=== PATIENT | female | born 1980 | race Two or more races ===

== ENCOUNTER 2019-06-05 08:29 | Outpatient (CLI) | payer OTHER ==
[~2019-06-05] VITALS: Ht 30.5 cm; Wt 0.5 kg
[~2019-06-05 08:29] MED LIST: Isovue-M 300 15ml INJ ONE
[2019-06-05] MEDS ORDERED: Isovue-M 300 15ml INJ ONE (08:56)
[2019-06-05 09:00] VITALS: BP 106/64
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
--- NOTE | 2019-06-05 09:17 | Pre-Procedure Note/Attestation ---
Pre-Procedure Note/Attestation Complete Prior to Procedure Planned Procedure: left Procedure Narrative: Left-sided facet injections to the L3-4, L4-5 and L5-S1 joints and a left ischial bursa injection. Indications for Procedure Pre-Operative Diagnosis: lumbosacral spondylosis, ischial bursitis Attestation I attest that I discussed the nature of the procedure; its benefits; risks and complications; and alternatives (and the risks and benefits of such alternatives ), prior to the procedure, with the patient (or the patient's legal sales representative sales manager). I attest that, if there was a reasonable possibility of needing a blood transfusion, the patient (or the patient's legal sales representative sales manager) was given the [place] [facility] standardized written summary, pursuant to the [place] Blood Safety Act ([place] Health and Safety Code # 1645, as amended). I attest that I re-evaluated the patient just prior to the surgery and that there has been no change in the patient's H&P, except as documented below: Lucinda Rowell MD Jun 05, 2019 09:17
[2019-06-05] MEDS ORDERED: Isovue-M 300 15ml INJ PRN (09:30)
[2019-06-05] MEDS ORDERED: Depo-Medrol 80mg Vial IARTIC PRN (09:30)
[2019-06-05 10:30] VITALS: BP 113/72
--- NOTE | 2019-06-05 10:32 | Brief Operative Note ---
Immediate Post Operative Note Operative Note Chief Complaint: lower back pain and left buttock pain Pre-op Diagnosis: lumbosacral spondylosis, ischial bursitis Procedure: Left L3-4, L4-5, L5-S1 facet injections and left ischial bursa injection. Post-op Diagnosis: lumbosacral spondylosis and left ischial bursitis. Post-op Diagnosis: same as pre-op Findings: consistent w/pre-op dx studies Surgeon: Lucinda Rowell MD County Sheriff: None Additional Surgeons: None Anesthesiologist: None Anesthesia: local Specimen: none Complications: none Condition: stable Fluids: none Estimated Blood Loss: none Drains: none Packing: none Tourniquet time: 0 - min Implant(s) used?: Lucinda Chung MD Jun 05, 2019 10:32
--- NOTE | 2019-06-05 10:34 | Discharge Summary ---
Discharge Summary Hospital Course Date of Admission 06/05/2019 Date of Discharge 06/05/2019 Admitting Diagnosis Lumbosacral spondylosis and bursitis Reason for Hospitalization: short stay HPI Pat Arce is a 39 year old female who was admitted on for Cervicalgia Consultations none Procedures Left L3-4, L4-5 and L5-S1 intra-articular facet injections and left ischial bursa injection. Hospital Course short stay Discharge Condition Upon Discharge: stable Discharge Vital Signs Last Vital Signs Date Time Temp Pulse Resp B/P (MAP) Pulse Ox O2 Delivery O2 Flow Rate FiO2 06/05/19 09:19 Room Air 06/05/19 09:00 97.7 80 19 106/64 99 Discharge Disposition Patient was discharged to home with father. Discharge Diagnoses: (1) Lumbosacral spondylosis (2) Ischial bursitis of left side Discharge Instructions Discharge Instructions Assessment stable Follow up with: Dr. Rowell Diet: regular Activity: okay to shower For Surgical Patients Clean and Dry: surgical site Dressing Care: may change May shower: Yes Contact your physician for: bleeding, pain, tenderness, redness, swelling, yellowish discharge in the op. site Lucinda Rowell MD Jun 05, 2019 10:34
--- NOTE | 2019-06-05 13:40 | Diagnostic Imaging Report ---
Indication: Intraoperative imaging COMPARISON: None FINDINGS: Multiple fluoroscopic images were obtained intraoperatively. Fluoroscopic time 36 seconds. Single fluoroscopic image showing epidural injection at the level of the L4 and L5 foramina bilaterally. IMPRESSION: Intraoperative imaging as described above
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
== END 2019-06-05 10:40 | disposition home or self-care (01) ==
LOC: RAD 08:29
DX: M47.817 Spondylosis without myelopathy or radiculopathy, lumbosacral region (principal); M71.9 Bursopathy, unspecified; M54.2 Cervicalgia
CPT/HCPCS: 62323; 81025; J1040; Q9967

== ENCOUNTER 2020-02-11 10:01 | Outpatient (CLI) | payer OTHER ==
[~2020-02-11] VITALS: Ht 175.3 cm; Wt 63.5 kg
[~2020-02-11 10:01] MED LIST changes: +ADDERALL 15 MG15 MG ORAL; +AMBIEN10 M1 ORAL; -Isovue-M 300 15ml INJ ONE; +LAMICTAL25 M1 PO
[2020-02-11 11:05] VITALS: BP 104/74
--- NOTE | 2020-02-11 11:16 | Short Stay Surgery H&P ---
History of Present Illness History of Present Illness Chief Complaint Left buttock pain HPI Pat Arce is a 39 year old female who was admitted on for Sacroiliitis Patient History Allergies: Coded Allergies: GRASS POLLEN (Verified Allergy, Intermediate, RUNNY NOSE, SNEEZING, 02/11/20) PAST MEDICAL HISTORY: (1) Sacroiliitis Medication History Scheduled Amphet Asp/Amphet/D-Amphet (Adderall 15 Mg Tablet), 15 MG ORAL DAILY, (Reported) Lamotrigine (Lamictal), 50 MG PO DAILY, (Reported) Scheduled PRN Zolpidem Tartrate* (Ambien*), 10 MG ORAL HS PRN for Insomnia, (Reported) Review of Systems Cardiovascular: Denies: no symptoms, see HPI, hypertension, CAD - stable, angina, [place], CABG, dysrhythmia, CHF, valvular disease, rheumatic heart disease, peripheral vascular disease, source of infx - skin, source of infx-indw cath, source of infx-prosthesis, other Respiratory: Denies: no symptoms, see HPI, asthma, chronic bronchitis, pneumonia, COPD, URI, tuberculosis, sleep apnea, CPAP, home 02, other Skeletal: Reports: spinal disc disease, trauma Gastrointestinal: Denies: no symptoms, see HPI, obesity, peptic ulcer disease, gastro esophageal reflux disease, hiatal hernia, jaundice, hepatitis A,B,C, other Genitourinary: Denies: no symptoms, see HPI, renal insufficiency, endstage renal disease, dialysis, UTI, urinary retention, BPH, other Neurologic: Denies: no symptoms, see HPI, seizure, stroke/TIA, neuropathy, neuro muscular disease, other Endocrine: Denies: no symptoms, see HPI, diabetes - type 1, diabetes - type 2, thyroid, post menopausal, other Hematologic: Denies: no symptoms, see HPI, anemia, coagulopathy, prior transfusion, other Physical Exam Vital Signs Last Vital Signs Date Time Temp Pulse Resp B/P (MAP) Pulse Ox O2 Delivery O2 Flow Rate FiO2 02/11/20 10:45 Room Air Labs Laboratory Tests Test 02/11/20 10:20 Urine HCG, Qualitative Negative (NEGATIVE) Skin: normal HENT: normal Heart: normal Lungs: normal Abdomen: normal Extremities: abnormal Genitourinary: normal Plan Plan of Care Left sacroiliac joint injection Preop Interventions rest, heat, physical therapy, pain injections Summary of Findings The patient is here for a left sacroiliac joint injection at the request of Dr. Mohr. Final Diagnosis: (1) Sacroiliitis Attestation Are the patient's medical conditions optimized for surgery? Attestation Response: yes Lucinda Rowell MD Feb 11, 2020 11:16
--- NOTE | 2020-02-11 11:18 | Pre-Procedure Note/Attestation ---
Pre-Procedure Note/Attestation Complete Prior to Procedure Planned Procedure: left Procedure Narrative: Left sacroiliac joint injection under fluoroscopic guidance. Indications for Procedure Pre-Operative Diagnosis: sacroiliitis Attestation I attest that I discussed the nature of the procedure; its benefits; risks and complications; and alternatives (and the risks and benefits of such alt ernatives), prior to the procedure, with the patient (or the patient's legal healthcare representative). I attest that, if there was a reasonable possibility of needing a blood transfusion, the patient (or the patient's legal healthcare representative) was given the [facility] standardized written summary, pursuant to the [place] Blood Safety Act ([place] Health and Safety Code # 1645, as amended). I attest that I re-evaluated the patient just prior to the surgery and that there has been no change in the patient's H&P, except as documented below: Lucinda Rowell MD Feb 11, 2020 11:18
[2020-02-11] MEDS ORDERED: Depo-Medrol 80mg Vial IARTIC ONE (11:30)
[2020-02-11] MEDS ORDERED: Isovue-M 300 15ml INJ ONE (11:30)
[2020-02-11 11:50] VITALS: BP 130/80
--- NOTE | 2020-02-11 11:57 | Brief Operative Note ---
Immediate Post Operative Note Operative Note Chief Complaint: left lower back and buttock pain Pre-op Diagnosis: sacroiliitis Procedure: left sacroiliac joint injection Post-op Diagnosis: sacroiliitis Post-op Diagnosis: same as pre-op Findings: consistent w/pre-op dx studies Surgeon: Lucinda Rowell MD Shuttlecock Assembler: none Additional Surgeons: none Anesthesiologist: none Anesthesia: local Specimen: none Complications: none Condition: stable Fluids: none Estimated Blood Loss: none Drains: none Packing: none Tourniquet time: 0 Implant(s) used?: Lucinda Chung MD Feb 11, 2020 11:57
--- NOTE | 2020-02-11 12:00 | Discharge Summary ---
Discharge Summary Hospital Course Date of Admission 02/11/2020 Date of Discharge 02/11/2020 Admitting Diagnosis sacroiliitis Reason for Hospitalization: short stay for an injection HPI Pat Arce is a 39 year old female who was admitted on for S acroiliitis Consultations none Procedures left sacroiliac joint injection Hospital Course short stay Discharge Condition Upon Discharge: stable Discharge Vital Signs Last Vital Signs Date Time Temp Pulse Resp B/P (MAP) Pulse Ox O2 Delivery O2 Flow Rate FiO2 02/11/20 11:05 97.7 74 18 104/74 100 Room Air Discharge Disposition Patient was discharged to home. Discharge Diagnoses: (1) Sacroiliitis Discharge Instructions Discharge Instructions Assessment sacroiliitis Diet: regular Activity: okay to shower For Surgical Patients Dressing Care: may change May shower: Yes Contact your physician for: bleeding, pain, tenderness, redness, swelling, yellowish discharge in the op. site Lucinda Rowell MD Feb 11, 2020 12:00
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
--- NOTE | 2020-02-12 16:14 | Diagnostic Imaging Report ---
INDICATION: Pain, intraoperative TECHNIQUE: Intraoperative imaging Fluoroscopy time: 53.2 seconds Total dose: [id number] mGym2 Total number of images: 4 COMPARISON: None FINDINGS: Intraoperative images document needle placement in or adjacent to the left sacroiliac joint, with contrast injection IMPRESSION: Intraoperative imaging, as described
== END 2020-02-11 13:57 | disposition home or self-care (01) ==
LOC: RAD 10:01
DX: M46.1 Sacroiliitis, not elsewhere classified (principal); M54.5 Low back pain; K62.89 Other specified diseases of anus and rectum
CPT/HCPCS: 62322; 81025; J1040; Q9967; U0002; 27096